=== PATIENT | female | born 1930 | race African-American/Black ===

== ENCOUNTER 2016-08-31 14:52 | Emergency (ER) | payer MEDICARE ==
[2016-08-31] MEDS ORDERED: HYDROCODONE/ACETAMINOPHEN 5-325 MG TABLET PO ONE (15:50)
--- NOTE | 2016-08-31 16:04 | ER Document Report ---
ED General - General Chief Complaint: Rib Pain Stated Complaint: FALL/ RIB PAIN, SHORTNESS OF BREATH Time Seen by Provider: 08/31/16 15:25 Mode of Arrival: Wheelchair Information source: Patient Notes: 36-year-old female presents with complaints of right rib pain after fall. Patient notes she fell 2 days ago denies any fevers or chills denies any shortness of breath or difficulty breathing, patient notes when she turns the pain worsens TRAVEL OUTSIDE OF THE [place] IN LAST 30 DAYS: No - Related Data Allergies/Adverse Reactions: No Known Allergies Allergy (Verified 04/30/13 17:48) Past Medical History - Social History Smoking Status: Never Smoker Cigarette use (# per day): No Chew tobacco use (# tins/day): No Smoking Education Provided: No Family History: Reviewed & Not Pertinent Patient has suicidal ideation: No Patient has homicidal ideation: No - Past Medical History Cardiac Medical History: Reports: Hx Hypercholesterolemia, Hx Hypertension Renal/ Medical History: Denies: Hx Peritoneal Dialysis Past Surgical History: Reports: Hx Appendectomy, Hx Hysterectomy - Immunizations Hx Diphtheria, Pertussis, Tetanus Vaccination: Yes Review of Systems - Review of Systems Notes: REVIEW OF SYSTEMS: CONSTITUTIONAL : Denies fever, chills, or sweats. Denies recent illness. EENT: Denies eye, ear, throat, or mouth pain or symptoms. Denies nasal or sinus congestion or discharge. Denies throat, tongue, or mouth swelling or difficulty swallowing. CARDIOVASCULAR: Denies chest pain. Denies palpitations or racing or irregular heart beat. Denies ankle edema. RESPIRATORY: Denies cough, cold, or chest congestion. Denies shortness of breath, difficulty breathing, or wheezing. GASTROINTESTINAL: Denies abdominal pain or distention. Denies nausea, vomiting , or diarrhea. Denies blood in vomitus, stools, or per rectum. Denies black, tarry stools. Denies constipation. GENITOURINARY: Denies difficulty urinating, painful urination, burning, frequency, blood in urine, or discharge. FEMALE GENITOURINARY: Denies vaginal bleeding, heavy or abnormal periods, irregular periods. Denies vaginal discharge or odor. MUSCULOSKELETAL: Denies back or neck pain or stiffness. Denies joint pain or swelling. Admits to rib pain right ribs 6 through 10 SKIN: Denies rash, lesions or sores. HEMATOLOGIC : Denies easy bruising or bleeding. LYMPHATIC: Denies swollen, enlarged glands. NEUROLOGICAL: Denies confusion or altered mental status. Denies passing out or loss of consciousness. Denies dizziness or lightheadedness. Denies headache. Denies weakness or paralysis or loss of use of either side. Denies problems with gait or speech. Denies sensory loss, numbness, or tingling. Denies seizures. PSYCHIATRIC: Denies anxiety or stress. Denies depression, suicidal ideation, or homicidal ideation. ALL OTHER SYSTEMS REVIEWED AND NEGATIVE. PHYSICAL EXAMINATION: GENERAL: Well-appearing, well-nourished and in no acute distress. HEAD: Atraumatic, normocephalic. EYES: Pupils equal round and reactive to light, extraocular movements intact, conjunctiva are normal. ENT: Nares patent, oropharynx clear without exudates. Moist mucous membranes. NECK: Normal range of motion, supple without lymphadenopathy LUNGS: Breath sounds clear to auscultation bilaterally and equal. No wheezes rales or rhonchi. No flail chest no contusion noted mild tenderness ribs 6 through 10 right mid axillary line HEART: Regular rate and rhythm without murmurs sternal tenderness ABDOMEN: Soft, nontender, nondistended abdomen. No guarding, no rebound. No masses appreciated. Female : deferred Musculoskeletal: Normal range of motion, no pitting or edema. No cyanosis. no C, T, L pain NEUROLOGICAL: Cranial nerves grossly intact. Normal speech, normal gait. Normal sensory, motor exams PSYCH: Normal mood, normal affect. SKIN: Warm, Dry, normal turgor, no rashes or lesions noted. Dictation was performed using [employer] voice recognition software Physical Exam - Vital signs Vitals: Temp Pulse Resp BP Pulse Ox 97.5 F 61 20 133/53 H 98 08/31/16 15:05 08/31/16 15:05 08/31/16 15:05 08/31/16 15:05 08/31/16 15:05 Course - Re-evaluation Re-evalutation: 08/31/16 16:21 Imaging noted no significant abnormality, I did explain to her my concerns about 12 cervical. Patient otherwise in no distress will be discharged home After performing a Medical Screening Examination, I estimate there is LOW risk for INTRACRANIAL HEMORRHAGE, UNSTABLE SPINE FRACTURE, CENTRAL CORD SYNDROME, CAUDA EQUINA, THORACIC AORTIC DISSECTION, PNEUMOTHORAX, PERFORATED BOWEL, RUPTURED ABDOMINAL AORTIC ANEURYSM, ACUTE TENDON RUPTURE, COMPARTMENT SYNDROME, or OPEN FRACTURE, thus I consider the discharge disposition reasonable. Also, there is no evidence or peritonitis, sepsis, or toxicity. I have reevaluated this patient multiple times and no significant life threatening changes are noted. The patient and I have discussed the diagnosis and risks, and we agree with discharging home to follow-up with their primary doctor with the understanding that symptoms and presentations can change. We also discussed returning to the Emergency Department immediately if new or worsening symptoms occur. We have discussed the symptoms which are most concerning (e.g., bloody stool, fever, changing or worsening pain, vomiting) that necessitate immediate return. - Vital Signs Vital signs: Temp Pulse Resp BP Pulse Ox 97.5 F 61 20 133/53 H 98 08/31/16 15:05 08/31/16 15:05 08/31/16 15:05 08/31/16 15:05 08/31/16 15:05 - Diagnostic Test Radiology reviewed: Image reviewed, Reports reviewed - Sternal irregularity and thoracic compression fracture explained to family Discharge - Discharge Clinical Impression: Rib contusion Qualifiers: Encounter type: initial encounter Laterality: right Qualified Code(s): S20.211A - Contusion of right front wall of thorax, initial encounter Fall Qualifiers: Encounter type: initial encounter Qualified Code(s): W19.XXXA - Unspecified fall, initial encounter Condition: Stable Disposition: HOME, SELF-CARE Instructions: Rib Contusion ([facility]) Additional Instructions: Follow up with your physician tomorrow for further care or return to the ED IMMEDIATELY if symptoms worsen or new concerns occur. If you cannot afford to follow up with your primary care physician a list of low cost clinics have been provided at the end of your discharge papers as well. Prescriptions: Hydrocodone/Acetaminophen [[place]hton 5-325 mg Tablet] 1 tab PO Q6 #20 tablet
--- NOTE | 2016-08-31 16:06 | RADIOLOGY REPORT (SQ) ---
EXAM DESCRIPTION: CT CHEST WITHOUT COMPLETED DATE/TIME: 08/31/2016 3:45 pm REASON FOR STUDY: fall rib pain COMPARISON: None. TECHNIQUE: CT scan performed of the chest without intravenous contrast. Images reviewed with lung, soft tissue and bone windows. Reconstructed coronal and sagittal MPR images reviewed. All images st ored on PACS. All CT scanners at this facility use dose modulation, iterative reconstruction, and/or weight based d osing when appropriate to reduce radiation dose to as low as reasonably achievable (ALARA). [facility]: Dose Right [facility]: CareDose [facility]: Dose Right [facility]: Teradose 4D [facility]: Duogou RADIATION DOSE: mGy. LIMITATIONS: Study is limited due to motion artifact. FINDINGS: LUNGS AND PLEURA: No masses, infiltrates, pneumothorax. No pleural effusions, calcificati ons. HILAR AND MEDIASTINAL STRUCTURES: No identified masses or abnormal nodes. No obvious aneurysm. HEART AND VASCULAR STRUCTURES: No aneurysm. No pericardial effusion. UPPER ABDOMEN: No significant findings. Limited exam. THYROID AND OTHER SOFT TISSUES: No masses. No adenopathy. BONES: There is cortical irregularity involving the body of the sternum in the sagittal projection wh ich is not definitely identified in the other projections and presumably is related to motion artifac t. The possibility of a sternal fracture cannot be completely excluded however and clinical correlat ion is recommended. There is mild compression of 1 of the mid thoracic vertebra which is age indeter minate. Degenerative changes are identified in the thoracic spine. HARDWARE: None in the chest. OTHER: No other significant findings. IMPRESSION: Limited study as noted above. No acute consolidations or pleural effusions are identifi ed. No pneumothorax is seen. Cortical irregularity involving the sternum on the sagittal images as noted above which may be related to motion artifact as noted above. Clinical correlation is recommen ded however. Other findings as noted above TECHNICAL DOCUMENTATION: JOB ID: [id number] Quality ID # [id number]: Final reports with documentation of one or more dose reduction techniques (e.g., Au tomated exposure control, adjustment of the mA and/or kV according to patient size, use of iterative reconstruction technique) 2010 [employer]- All Rights Reserved
[2016-08-31 16:40] VITALS: BP 172/69
== END 2016-08-31 16:30 | disposition home or self-care (01) ==
LOC: ER 14:52
DX: S20.211A Contusion of right front wall of thorax, initial encounter (principal); R07.81 Pleurodynia; W10.9XXA Fall (on) (from) unspecified stairs and steps, initial encounter; Y92.009 Unspecified place in unspecified non-institutional (private) residence as the place of occurrence of the external cause; I10 Essential (primary) hypertension
CPT/HCPCS: 99283; 71250; A9270

== ENCOUNTER 2016-10-14 14:48 | Emergency (ER) | payer MEDICARE ==
[2016-10-14 14:55] VITALS: BP 93/64
[2016-10-14] MEDS ORDERED: CETIRIZINE 10 MG TABLET PO ONE (16:13)
--- NOTE | 2016-10-14 16:14 | ER Document Report ---
HPI - HPI Patient complains to provider of: ear popping Onset: Other - 2 weeks Onset/Duration: Persistent Quality of pain: No pain Pain Level: Denies Context: Patient complains of clicking to bilateral ears for the past 2 weeks. Patient denies any fever or drainage from the ears. She denies any sinus congestion. Associated Symptoms: Other - Ear symptoms Exacerbated by: Denies Relieved by: Denies Similar symptoms previously: No Recently seen / treated by doctor: No - ROS ROS below otherwise negative: Yes Systems Reviewed and Negative: Yes All other systems reviewed and negative - EENT EENT: DENIES: Sore Throat, Nasal Drainage-Clear Notes: Ear symptoms - NEURO Neurology: DENIES: Headache, Weakness - CARDIOVASCULAR Cardiovascular: DENIES: Chest pain - GASTROINTESTINAL Gastrointestinal: DENIES: Nausea, Patient vomiting - REPRODUCTIVE Reproductive: DENIES: : - MUSCULOSKELETAL Musculoskeletal: DENIES: Neck Pain - DERM Skin Color: Normal Skin Problems: None Past Medical History - General Information source: Patient - Social History Smoking Status: Never Smoker Frequency of alcohol use: None Drug Abuse: None Lives with: Family Family History: Reviewed & Not Pertinent Patient has suicidal ideation: No Patient has homicidal ideation: No - Past Medical History Cardiac Medical History: Reports: Hx Hypercholesterolemia, Hx Hypertension Renal/ Medical History: Denies: Hx Peritoneal Dialysis Past Surgical History: Reports: Hx Appendectomy, Hx Hysterectomy - Immunizations Hx Diphtheria, Pertussis, Tetanus Vaccination: Yes Vertical Provider Document - CONSTITUTIONAL Agree With Documented VS: Yes Exam Limitations: No Limitations General Appearance: WD/WN, No Apparent Distress - INFECTION CONTROL TRAVEL OUTSIDE OF THE [place] IN LAST 30 DAYS: No - HEENT HEENT: Atraumatic, Normocephalic. negative: Pharyngeal Exudate, Pharyngeal Tenderness, Pharyngeal Erythema, Tympanic Membrane Red, Tympanic Membrane Bulging Notes: Mild serous effusion noted to the left ear, no pain with movement of helix, no mastoid tenderness or swelling Cerumen impaction cleared with use of curette to right ear. - NECK Neck: Normal Inspection, Supple. negative: Lymphadenopathy-Left, Lymphadenopathy-Right - RESPIRATORY Respiratory: Breath Sounds Normal, No Respiratory Distress O2 Sat by Pulse Oximetry: 98 - CARDIOVASCULAR Cardiovascular: Regular Rate, Regular Rhythm - BACK Back: Normal Inspection - MUSCULOSKELETAL/EXTREMETIES Musculoskeletal/Extremeties: MAEW - NEURO Level of Consciousness: Awake, Alert, Appropriate Motor/Sensory: No Motor Deficit - DERM Integumentary: Warm, Dry, No Rash Course - Vital Signs Vital signs: Temp Pulse Resp BP Pulse Ox 97.9 F 75 93/64 L 98 10/14/16 14:53 10/14/16 14:53 10/14/16 14:53 10/14/16 14:53 Discharge - Discharge Clinical Impression: Excessive cerumen in right ear canal Otalgia Qualifiers: Laterality: bilateral Qualified Code(s): H92.03 - Otalgia, bilateral Serous otitis media Qualifiers: Chronicity: acute Laterality: left Recurrence: not specified as recurrent Qualified Code(s): H65.02 - Acute serous otitis media, left ear Condition: Stable Disposition: HOME, SELF-CARE Instructions: Cerumen Impaction ([facility]), Serous Otitis Media ([facility]) Additional Instructions: Return immediately for any new or worsening symptoms Followup with your primary care provider, call tomorrow to make a followup appointment Follow-up with ears nose and throat doctor for any continued problems Prescriptions: Cetirizine HCl [Zyrtec 10 mg Tablet] 1 tab PO DAILY #15 tablet Referrals: [facility] [Provider Group] - Follow up as needed
== END 2016-10-14 16:30 | disposition home or self-care (01) ==
LOC: ER 14:48
DX: H61.21 Impacted cerumen, right ear (principal); H65.02 Acute serous otitis media, left ear; H92.03 Otalgia, bilateral; I10 Essential (primary) hypertension
CPT/HCPCS: 99282; A9270

== ENCOUNTER 2017-06-27 13:02 | Emergency (ER) | payer MEDICARE, MEDICAID ==
[2017-06-27] MEDS ORDERED: TETRACAINE HCL 0.5% OPH SOLN 2 ML OU ONE (13:36)
--- NOTE | 2017-06-27 14:17 | ER Document Report ---
ED Medical Screen (RME) - General Chief Complaint: Eye Pain Stated Complaint: RIGHT EYE IRRITATION, PAIN Mode of Arrival: Medic Information source: Patient TRAVEL OUTSIDE OF THE [place] IN LAST 30 DAYS: No - HPI Notes: 06/27/17 14:12 87 yr old w/ a hx of HTN, hyperlipidemia presents today via EMS for c/o of floaters in eyes, eye pain 6/10 x 2 weeks, progressively worse. denies cp, sob, n/v/d. denies any trauma to eye. Patient was supposed to see valuation manager but was unable to. I have greeted and performed a rapid initial assessment of this patient. A comprehensive ED assessment and evaluation of the patient, analysis of test results and completion of medical decision making process will be conducted by an additional ED providers. - Related Data Allergies/Adverse Reactions: No Known Allergies Allergy (Verified 06/27/17 13:10) Past Medical History - Past Medical History Cardiac Medical History: Reports: Hx Hypercholesterolemia, Hx Hypertension Renal/ Medical History: Denies: Hx Peritoneal Dialysis Past Surgical History: Reports: Hx Appendectomy, Hx Hysterectomy - Immunizations Hx Diphtheria, Pertussis, Tetanus Vaccination: Yes Physical Exam - Vital signs Vitals: Temp Pulse Resp BP Pulse Ox 98.8 F 75 16 149/74 H 94 06/27/17 13:12 06/27/17 13:12 06/27/17 13:12 06/27/17 13:12 06/27/17 13:12 - HEENT Cornea: Opacified - nurse unable to obatin visual acuity Extraocular movements intact: Yes Pupils: PERRL Nerve palsy: No Visual bianchi normal: No - Respiratory Respiratory status: No respiratory distress Chest status: Nontender Breath sounds: Normal Chest palpation: Normal - Cardiovascular Rhythm: Regular Heart sounds: Normal auscultation Normal capillary refill: Yes Course - Vital Signs Vital signs: Temp Pulse Resp BP Pulse Ox 98.9 F 79 20 140/72 H 97 06/27/17 15:34 06/27/17 15:34 06/27/17 15:34 06/27/17 15:34 06/27/17 15:34 Doctor's Discharge - Discharge Clinical Impression: Conjunctivitis, Glaucoma Disposition: HOME, SELF-CARE Instructions: Conjunctivitis, Allergic, Glaucoma ([facility]) Additional Instructions: Please keep your upcoming appointment with your valuation manager. Follow up with your physician tomorrow for further care or return to the ED IMMEDIATELY if symptoms worsen or new concerns occur. If you cannot afford to follow up with your primary care physician a list of low cost clinics have been provided at the end of your discharge papers as well. Please return if you experience worsening of pain, changes in her vision. Prescriptions: Ketotifen Fumarate [Alaway] 10 ml OP Q12H 7 Days #1 drops Polymyxin B Sulf/Trimethoprim [Polytrim Eye Drops] 10 ml OP Q6H 7 Days #2 drops
--- NOTE | 2017-06-27 15:06 | ER Document Report ---
ED General - General Chief Complaint: Eye Pain Stated Complaint: RIGHT EYE IRRITATION, PAIN Time Seen by Provider: 06/27/17 14:17 Mode of Arrival: Ambulatory Information source: Patient, Relative Notes: 87-year-old female with a history of HTN, hyperlipidemia, glaucoma presents with complaint of bilateral eye irritation, watering, itching. Patient states symptoms have been present for 3 weeks. She denies any visual changes, headache. He has been seen by her lead janitor for this and was prescribed artificial tears and Bromidine. Patient also states that she is having a recurrence of floaters. She denies any head injury. She has an upcoming appointment with her lead janitor for glaucoma removal. She has had this in the past. She does not wear contacts but does wear corrective lenses. Denies any sick contacts. She admits to nasal congestion. TRAVEL OUTSIDE OF THE [place] IN LAST 30 DAYS: No - HPI Onset: Other Onset/Duration: Gradual Quality of pain: Burning - Itching, Other Severity: Mild Associated symptoms: denies: Fever Exacerbated by: Denies Relieved by: Denies Similar symptoms previously: Yes Recently seen / treated by doctor: Yes - Related Data Allergies/Adverse Reactions: No Known Allergies Allergy (Verified 06/27/17 13:10) Past Medical History - General Information source: Patient - Social History Smoking Status: Former Smoker Frequency of alcohol use: None Drug Abuse: None Family History: Reviewed & Not Pertinent Patient has suicidal ideation: No Patient has homicidal ideation: No - Past Medical History Cardiac Medical History: Reports: Hx Hypercholesterolemia, Hx Hypertension Renal/ Medical History: Denies: Hx Peritoneal Dialysis Past Surgical History: Reports: Hx Appendectomy, Hx Hysterectomy - Immunizations Hx Diphtheria, Pertussis, Tetanus Vaccination: Yes Review of Systems - Review of Systems Notes: Patient denies visual changes, fever, chills, nausea, vomiting, headache, ear pain, sore throat, cough, chest pain, shortness of breath, abdominal pain, back pain, dysuria, hematuria, rash, SI/HI. Physical Exam - Vital signs Vitals: Temp Pulse Resp BP Pulse Ox 98.8 F 75 16 149/74 H 94 06/27/17 13:12 06/27/17 13:12 06/27/17 13:12 06/27/17 13:12 06/27/17 13:12 Interpretation: Normal, Hypertensive. No: Febrile Notes: PHYSICAL EXAMINATION: GENERAL: Well-appearing, well-nourished and in no acute distress. HEAD: Atraumatic, normocephalic. EYES: Erythematous conjunctivae bilaterally. Clouded cornea consistent with glaucoma. Right eye pressure 22. Left eye pressure 28. Patient is able to read a small sign from across the room. Visual acuity is pending. Normal slit- lamp exam. No fluorescein uptake. ENT: Nares patent, oropharynx clear without exudates. Moist mucous membranes. NECK: Normal range of motion, supple without lymphadenopathy LUNGS: Breath sounds clear to auscultation bilaterally and equal. No wheezes rales or rhonchi. HEART: Regular rate and rhythm without murmurs ABDOMEN: Soft, nontender, nondistended abdomen. No guarding, no rebound. No masses appreciated. Female : deferred Musculoskeletal: Normal range of motion, no pitting or edema. No cyanosis. NEUROLOGICAL: Cranial nerves grossly intact. Normal speech, normal gait. Normal sensory, motor exams PSYCH: Normal mood, normal affect. SKIN: Warm, Dry, normal turgor, no rashes or lesions noted. - Notes Notes: PHYSICAL EXAMINATION: GENERAL: Well-appearing, well-nourished and in no acute distress. HEAD: Atraumatic, normocephalic. EYES: Pupils equal round and reactive to light, extraocular movements intact, bilateral erythematous conjunctivae. No fluorescein uptake. Normal funduscopic exam. Normal slit-lamp exam. Patient is able to read a small sign from 10 feet away. Visual acuities documented. ENT: Nares patent, oropharynx clear without exudates. Moist mucous membranes. NECK: Normal range of motion, supple without lymphadenopathy LUNGS: Breath sounds clear to auscultation bilaterally and equal. No wheezes rales or rhonchi. HEART: Regular rate and rhythm without murmurs ABDOMEN: Soft, nontender, nondistended abdomen. No guarding, no rebound. No masses appreciated. Female : deferred Musculoskeletal: Normal range of motion, no pitting or edema. No cyanosis. NEUROLOGICAL: Cranial nerves grossly intact. Normal speech, normal gait. Normal sensory, motor exams PSYCH: Normal mood, normal affect. SKIN: Warm, Dry, normal turgor, no rashes or lesions noted. Course - Re-evaluation Re-evalutation: 06/28/17 18:58 87-year-old female with a history of glaucoma presents with complaint of bilateral eye irritation, redness, tearing that has been ongoing for 3 weeks. Patient denies any visual changes, headache. She has been seen for her lead janitor recently and is scheduled for glaucoma surgery. Patient's eyes were examined under slit lamp. Patient has no fluorescein uptake. Patient has right eye pressure of 22 and a left eye pressure of 28. Patient was seen by myself upon arrival. Vital signs were reviewed. Patient is afebrile, normotensive and not hypoxic. Patient does not appear toxic or dehydrated. They are in no acute distress. Previous medical records and nursing notes reviewed. Exam is consistent with allergic conjunctivitis. Patient has good follow-up with an upcoming appointment with her lead janitor Dr. Chapa. Patient provided the opportunity to ask questions, and express concerns. Discharge instructions discussed. Patient is agreeable with discharge home. Return indications explained and discussed with the patient who displays understanding. Patient encouraged to return to the emergency department immediately with any concerns.After performing a Medical Screening Examination, I estimate there is LOW risk for a RETAINED CORNEAL or LID FOREIGN BODY, DEEP SPACE INFECTION (e.g., ORBITAL CELLULITIS OR ABSCESS), ACUTE GLAUCOMA, PENETRATING GLOBE INJURY, RETINAL DETACHMENT, or MENINGITIS thus I consider the discharge disposition reasonable. I have reevaluated this patient multiple times and no significant life threatening changes are noted. Also, there is no evidence or peritonitis, sepsis, or toxicity. The patient and I have discussed the diagnosis and risks, and we agree with discharging home with outpatient follow-up with the understanding that symptoms and presentations can change. We also discussed returning to the Emergency Department immediately if new or worsening symptoms occur. We have discussed the symptoms which are most concerning (e.g., changing or worsening pain, vision changes, neck stiffness or fever) that necessitate immediate return. - Vital Signs Vital signs: Temp Pulse Resp BP Pulse Ox 98.9 F 79 20 140/72 H 97 06/27/17 15:34 06/27/17 15:34 06/27/17 15:34 06/27/17 15:34 06/27/17 15:34 Discharge - Discharge Clinical Impression: Conjunctivitis Qualifiers: Conjunctivitis type: unspecified Laterality: bilateral Qualified Code(s): H10.9 - Unspecified conjunctivitis Glaucoma Qualifiers: Glaucoma type: unspecified Laterality: bilateral Qualified Code(s): H40.9 - Unspecified glaucoma Disposition: HOME, SELF-CARE Instructions: Conjunctivitis, Allergic, Glaucoma ([facility]) Additional Instructions: Please keep your upcoming appointment with your lead janitor. Follow up with your physician tomorrow for further care or return to the ED IMMEDIATELY if symptoms worsen or new concerns occur. If you cannot afford to follow up with your primary care physician a list of low cost clinics have been provided at the end of your discharge papers as well. Please return if you experience worsening of pain, changes in her vision. Prescriptions: Ketotifen Fumarate [Alaway] 10 ml OP Q12H 7 Days #1 drops Polymyxin B Sulf/Trimethoprim [Polytrim Eye Drops] 10 ml OP Q6H 7 Days #2 drops
[2017-06-27 15:35] VITALS: BP 140/72
== END 2017-06-27 15:38 | disposition home or self-care (01) ==
LOC: ER 13:02
DX: H10.9 Unspecified conjunctivitis (principal); H40.9 Unspecified glaucoma; H57.11 Ocular pain, right eye; H57.8 Other specified disorders of eye and adnexa; H43.399 Other vitreous opacities, unspecified eye; E78.5 Hyperlipidemia, unspecified; I10 Essential (primary) hypertension; Z87.891 Personal history of nicotine dependence
CPT/HCPCS: 99283

== ENCOUNTER 2017-07-04 23:38 | Emergency (ER) | payer MEDICARE, MEDICAID ==
[2017-07-04 23:47] VITALS: BP 142/67
== END 2017-07-05 04:12 | disposition left against medical advice (07) ==
LOC: ER 23:38
DX: Z53.21 Procedure and treatment not carried out due to patient leaving prior to being seen by health care provider (principal); S09.90XA Unspecified injury of head, initial encounter; W19.XXXA Unspecified fall, initial encounter

== ENCOUNTER 2017-12-15 11:10 | Emergency (ER) | payer MEDICARE, MEDICAID ==
[2017-12-15 11:27] VITALS: BP 143/62
--- NOTE | 2017-12-15 11:39 | ER Document Report ---
ED General - General Chief Complaint: Hip Pain Stated Complaint: HIP AND BACK PAIN Time Seen by Provider: 12/15/17 11:30 Notes: Patient is a 87-year-old female that presents to the emergency department for chief complaint of back pain radiating to the buttocks. Patient reports she is been having pain in her right back that radiates to the right hip over the past 2 weeks is getting progressively worse. She has been taking Aleve, Motrin and gabapentin which has given her pretty good relief of the pain. She has been less ambulatory due to this pain. She reports a fall several months ago, but she did improve after that fall, she did not have any fractures recently. She denies having any numbness, tingling or weakness in any lower extremity, denies any bowel or bladder incontinence or urinary retention, denies any saddle anesthesias or paresthesias. She currently rates the pain as a 6 out of 10, describes as an aching dull sensation from the low back into the right buttock. Past Medical History: Hypertension, anxiety, depression Past Surgical History: Appendectomy Social History: Denies tobacco, alcohol or drug use, lives at home with family Family History: Reviewed and noncontributory for presenting illness Allergies: Reviewed, see documented allergy list. REVIEW OF SYSTEMS: Unless otherwise stated in this report the patient's positive and negative responses for review of systems for constitutional, eyes, ENT, cardiovascular, respiratory, gastrointestinal, neurological, genitourinary, musculoskeletal, and integumentary systems and related systems to the presenting problem are either as stated in the HPI or were not pertinent or were negative for the symptoms and/or complaints related to the presenting medical problem. PHYSICAL EXAMINATION: Vital signs reviewed, nursing noted reviewed. GENERAL: Elderly female, no acute or apparent distress HEAD: Atraumatic, normocephalic. EYES: Eyes appear normal, extraocular movements intact, sclera anicteric, conjunctiva are normal. ENT: nares patent, oropharynx clear without exudates. Moist mucous membranes. NECK: Normal range of motion, supple without lymphadenopathy LUNGS: Breath sounds clear to auscultation bilaterally and equal. No wheezes rales or rhonchi. HEART: Regular rate and rhythm without murmurs ABDOMEN: Soft, nontender, normoactive bowel sounds. No rebound, guarding, or rigidity. No masses appreciated. Back: No thoracic or lumbar midline tenderness with palpation, there is mild paraspinal tenderness to the left lumbar region, there is also tenderness to palpation of the sciatic area, near the piriformis muscle. Good range of motion , no step-offs or deformities. EXTREMITIES: Nontender, good range of motion, no pitting or edema. NEUROLOGICAL: No focal neurological deficits. Moves all extremities spontaneously Motor and sensory grossly intact on exam. Patellar and Achilles tendon reflexes intact bilaterally, +2/4 and equal PSYCH: Normal mood, normal affect. SKIN: Warm, Dry, normal turgor, no rashes or lesions noted on exposed skin TRAVEL OUTSIDE OF THE [place] IN LAST 30 DAYS: No - Related Data Allergies/Adverse Reactions: No Known Allergies Allergy (Verified 12/15/17 11:14) Past Medical History - Social History Smoking Status: Unknown if Ever Smoked Chew tobacco use (# tins/day): No Frequency of alcohol use: None Drug Abuse: None Family History: Reviewed & Not Pertinent Patient has suicidal ideation: No Patient has homicidal ideation: No - Past Medical History Cardiac Medical History: Reports: Hx Hypercholesterolemia, Hx Hypertension Renal/ Medical History: Denies: Hx Peritoneal Dialysis Musculoskeletal Medical History: Reports Hx Arthritis Past Surgical History: Reports: Hx Appendectomy, Hx Hysterectomy - Immunizations Hx Diphtheria, Pertussis, Tetanus Vaccination: Yes Physical Exam - Vital signs Vitals: Temp Pulse Resp BP Pulse Ox 98.4 F 88 14 143/62 H 96 12/15/17 11:25 12/15/17 11:25 12/15/17 11:25 12/15/17 11:25 12/15/17 11:25 Course - Re-evaluation Re-evalutation: Patient had no recent injuries, his symptoms are most consistent with sciatica, even radiation from the back into the buttock region, reproducible pain on exam. No radicular symptoms such as numbness, weakness or tingling. We will place the patient on prednisone for 5 days, advised her to avoid NSAIDs over the course of the next 5 days, but she can take the gabapentin she has been having that seem to be helping her, she can also follow-up with her primary care physician, if needed for further evaluation and management. She also may need physical therapy to help with ambulation. Patient and patient's family members were agreeable to this plan of care and she was discharged home. - Vital Signs Vital signs: Temp Pulse Resp BP Pulse Ox 98.4 F 88 14 143/62 H 96 12/15/17 11:25 12/15/17 11:25 12/15/17 11:25 12/15/17 11:25 12/15/17 11:25 Discharge - Discharge Clinical Impression: Sciatica Qualifiers: Laterality: right Qualified Code(s): M54.31 - Sciatica, right side Condition: Stable Disposition: HOME, SELF-CARE Instructions: Sciatica ([facility]) Additional Instructions: Please return to the emergency department if you have any worsening, or concern of your symptoms. Please return to the emergency department if you develop chest pain, difficulty breathing, severe abdominal pain, or ongoing vomiting. Please follow-up with your primary care physician in 2-3 days and any other recommended physicians. If prescribed, take all medications as directed. If you have any questions or concerns do not hesitate to return the emergency department for evaluation. Prescriptions: Prednisone 40 mg PO DAILY #10 tablet Referrals: EDWARD YOUNG MD [ACTIVE STAFF] - Follow up in 3-5 days (orthopedics if needed, otherwise follow-up with primary care. )
== END 2017-12-15 11:40 | disposition home or self-care (01) ==
LOC: ER 11:10
DX: M54.41 Lumbago with sciatica, right side (principal); I10 Essential (primary) hypertension
CPT/HCPCS: 99283

== ENCOUNTER 2018-03-19 11:29 | Inpatient (IN) | payer MEDICAID, MEDICARE ==
[2018-03-19] MEDS ORDERED: RABIES VACCINE (PCEC)/PF 2.5 UNIT/1 ML KIT IM ONE (12:14)
[2018-03-19] MEDS ORDERED: AMOXICILLIN TR/POT CLAVULANATE 500-125 MG TAB PO ONE (12:15)
--- NOTE | 2018-03-19 12:46 | ER Document Report ---
Entered by STEPHEN BARRON SCRIBE 03/19/18 1215 Acting as scribe for:MIL NOLASCO DO ED Medical Screen (RME) - General Chief Complaint: Cat Bite Stated Complaint: LEFT WRIST SWOLLEN Time Seen by Provider: 03/19/18 12:09 Notes: 88-year-old female who presents to the emergency department today with complaints of a cat bite which occurred 6 days ago. Patient states that this cat is a stray and she does not know whether or not the cat has rabies. Patient mentions that 3 years ago she was bit by a stray dog and had to have a full set of rabies vaccines at that time. Patient states she noticed the swelling and re dness when she woke up this morning. Patient denies any fevers. Patient has full range of motion of left wrist and fingers. I have greeted and performed a rapid initial assessment of this patient. A comprehensive ED assessment and evaluation of the patient, analysis of test results, and completion of the medical decision making process will be conducted by additional ED providers. Review of systems: Constitutional: Denies fevers. EENT: No symptoms reported Cardiovascular: No symptoms reported Respiratory: No symptoms reported Gastrointestinal: No symptoms reported Genitourinary: No symptoms reported Musculoskeletal: Left wrist pain Skin: Left wrist redness/swelling Hematologic/Lymphatic: No symptoms reported Neurological/Psychological: No symptoms reported Yes All other systems reviewed and negative PHYSICAL EXAM GENERAL: Alert, interacts well. No acute distress. HEAD: Normocephalic, atraumatic. EYES: Pupils equal, round, and reactive to light. Extraocular movements intact. ENT: Oral mucosa moist, tongue midline. NECK: Full range of motion. Supple. Trachea midline. LUNGS: No respiratory distress. EXTREMITIES: Complains of pain with dorsiflexion of left wrist. 5 out of 5 muscle strength in the left wrist and fingers. NEUROLOGICAL: Alert and oriented x3. Normal speech. PSYCH: Normal affect, normal mood. SKIN: Fluctuance over the left dorsal wrist. Erythema over the left dorsoradial apest of left wrist wrist with increased warmth. Lymphangitic streaking up the left forearm traveling from the radial aspect to the ulnar aspect dorsally. 4 puncture wounds consistent with a cat bite. Swelling over the left dorsal hand. Area of erythema measures 5cm in diameter however the lymphangitic streaking extends past this area. There is one puncture wound just distal to the fluctuance. TRAVEL OUTSIDE OF THE [place] IN LAST 30 DAYS: No - Related Data Allergies/Adverse Reactions: No Known Allergies Allergy (Verified 03/19/18 11:33) Past Medical History - Past Medical History Cardiac Medical History: Reports: Hx Hypercholesterolemia, Hx Hypertension Renal/ Medical History: Denies: Hx Peritoneal Dialysis Musculoskeltal Medical History: Reports Hx Arthritis Past Surgical History: Reports: Hx Appendectomy, Hx Hysterectomy - Immunizations Hx Diphtheria, Pertussis, Tetanus Vaccination: Yes Physical Exam - Vital signs Vitals: Temp Pulse Resp BP Pulse Ox 98.1 F 77 16 149/77 H 99 03/19/18 11:38 03/19/18 11:38 03/19/18 11:38 03/19/18 11:38 03/19/18 11:38 Course - Re-evaluation Re-evalutation: 03/19/18 12:14 Per [facility] website patient will been previously immunized should get to rabies vaccine doses 1 on day 0 and day 3. Rabies immunoglobulin is not required. Patient will be given first dose here. - Vital Signs Vital signs: Temp Pulse Resp BP Pulse Ox 98.1 F 77 16 149/77 H 99 03/19/18 11:38 03/19/18 11:38 03/19/18 11:38 03/19/18 11:38 03/19/18 11:38 I personally performed the services described in the documentation, reviewed and edited the documentation which was dictated to the scribe in my presence, and it accurately records my words and actions.
--- NOTE | 2018-03-19 13:17 | RADIOLOGY REPORT (SQ) ---
EXAM DESCRIPTION: WRIST LEFT 3 VIEWS COMPLETED DATE/TIME: 03/19/2018 1:08 pm REASON FOR STUDY: bit by cat, look for FB/tooth COMPARISON: None. NUMBER OF VIEWS: Three views. TECHNIQUE: AP, lateral, and oblique radiographic images acquired of the left wrist. LIMITATIONS: None. FINDINGS: MINERALIZATION: Normal. BONES: No fracture or dislocation. Degenerative joint changes seen in the 1st carpometacarpal joint and in the 1st metacarpophalangeal joint. SOFT TISSUES: No soft tissue swelling. No foreign body. OTHER: No other significant finding. IMPRESSION: Degenerative joint disease. No acute abnormality in the wrist. TECHNICAL DOCUMENTATION: JOB ID: [id number] [employer]- All Rights Reserved Reading location - IP/workstation name: [email or web address]
--- NOTE | 2018-03-19 13:20 | ER Document Report ---
HPI - HPI Time Seen by Provider: 03/19/18 12:09 Pain Level: 2 Notes: Patient is an 88-year-old female who presents emergency department complaining of a cat bite to her left wrist that occurred about 4 days ago. Patient states that she was feeding her cats on her porch when another cat that she did not recognize was on the porch. Patient states that she tried to scared away, but it bit her in the wrist before running off. Patient states that it looked well otherwise. Her last tetanus was less than 5 years. Denies any drug allergies. Patient states that she does have redness and swelling that is gotten worse over the course of last several days without any purulent discharge. Patient states that she is eating and drinking without difficulty. She is urinating normally. Denies drug allergies. No other concerns or complaints. Denies any headache, fever, neck pain, URI, sore throat, chest pain, palpitations, syncope, cough, shortness of breath, wheeze, dyspnea, abdominal pain, nausea/vomiting/diarrhea, urinary retention, dysuria, hematuria, loss of control of bowel or bladder, numbness/tingling, muscle paralysis/weakness. Pt has had the rabies vaccination several years ago for a dog bite. - ROS Systems Reviewed and Negative: Yes All other systems reviewed and negative - REPRODUCTIVE Reproductive: DENIES: : - DERM Skin Color: Normal Past Medical History - Social History Smoking Status: Unknown if Ever Smoked Family History: Reviewed & Not Pertinent Patient has suicidal ideation: No Patient has homicidal ideation: No - Past Medical History Cardiac Medical History: Reports: Hx Hypercholesterolemia, Hx Hypertension Renal/ Medical History: Denies: Hx Peritoneal Dialysis Musculoskeletal Medical History: Reports Hx Arthritis Past Surgical History: Reports: Hx Appendectomy, Hx Hysterectomy - Immunizations Hx Diphtheria, Pertussis, Tetanus Vaccination: Yes Vertical Provider Document - CONSTITUTIONAL Agree With Documented VS: Yes Notes: PHYSICAL EXAMINATION: GENERAL: Well-appearing, well-nourished and in no acute distress. A&Ox4. Answers questions appropriately. HEAD: Atraumatic, normocephalic. EYES: Pupils equal round and reactive to light, extraocular movements intact, sclera anicteric, conjunctiva are normal. ENT: Nares patent and without discharge. oropharynx clear without exudates. No tonsilar hypertrophy or erythema. Moist mucous membranes. NECK: Normal range of motion, supple without lymphadenopathy LUNGS: Breath sounds clear to auscultation bilaterally and equal. No wheezes rales or rhonchi. HEART: Regular rate and rhythm without murmurs, rubs, gallops. Musculoskeletal: Left hand: FROM to passive/active. Strength 5+/5. N/v intact distal. Able to flex fingers w/o difficulty. Extremities: No cyanosis, clubbing, or edema b/l. Peripheral pulses 2+. Capillary refill less than 3 seconds. NEUROLOGICAL: Cranial nerves grossly intact. Normal speech, normal gait. Normal sensory, motor exams PSYCH: Normal mood, normal affect. SKIN: Left wrist: + old puncture wounds consistent with probable bite noted. There is associated erythema, warmth, and swelling to the wrist. + tenderness. + scant fluctuance noted superficially. Minimal streaking. + swelling to the hand in association. - INFECTION CONTROL TRAVEL OUTSIDE OF THE [place] IN LAST 30 DAYS: No Course - Re-evaluation Re-evalutation: 03/19/18 13:[address] Eloy sullivan the patient as well: We will attempt needle aspiration due to the location and size of the fluctuant material. No deeper or large pocket noted on US at bedside. Labs ordered and we will consider admission. 03/19/18 15:09 Simple incision and drainage was performed cautiously do the area and small area of fluctuance with purulence expressed and wound culture obtained. Patient tied procedure well without any complications. Dressing was applied. I did call and speak with Dr. Kirk who will have Dr. Baker evaluate the patient for possible admission for IV antibiotics. They will let me know thereafter if they will accept or if they want to try outpatient. Patient does appear to be reliable if we were to discharge and we would have her follow-up within 24 hours for recheck. 03/19/18 16:07 I did speak with Dr. Baker who will accept pt for admit. - Vital Signs Vital signs: Temp Pulse Resp BP Pulse Ox 98.1 F 77 16 149/77 H 99 03/19/18 11:38 03/19/18 11:38 03/19/18 11:38 03/19/18 11:38 03/19/18 11:38 - Laboratory Result Diagrams: 03/19/18 14:16 03/19/18 14:16 Procedures - Incision and Drainage Left Wrist Time completed: 14:45 - small puncture placed due to location and size of abscess per Dr. Lyons Type: Simple Anesthetic type: Other - topical LET Blade size: 11 I&D procedure: Chlorprep applied, Iodoform packing placed, Sterile dressing applied Incision Method: Incision made by scalpel Amount/type of drainage: moderate purulent Discharge - Discharge Clinical Impression: Cellulitis of wrist Condition: Stable Disposition: ADMITTED INPATIENT Admitting Provider: Hospitalist - Dr. Baker Unit Admitted: Medical Floor
[2018-03-19] MEDS ORDERED: LIDOCAINE 4%/TETRACAINE 0.5%/EPI 0.18% 5 ML TOPICAL SOLN TOP ONE (13:28)
[2018-03-19 14:45] LABS: ABSOLUTE BASOPHILS # (AUTO) 0.1 10^3/uL (0.0-0.2); ABSOLUTE EOSINOPHILS # (AUTO) 0.1 10^3/uL (0.0-0.6); ABSOLUTE MONOCYTES (AUTO) 1.4 10^3/uL (0.1-1.4); ABSOLUTE NEUT (AUTO) 6.6 10^3/uL (1.7-8.2); BASOPHILS % (AUTO) 0.6 % (0-2); EOSINOPHILS % (AUTO) 1.6 % (0-6); HEMATOCRIT 33.3 % (36.0-47.0); HEMOGLOBIN 11.1 g/dL (12.0-15.5); MEAN CORPUSCULAR HEMOGLOBIN 30.3 pg (27.0-33.4); MEAN CORPUSCULAR HGB CONC 33.3 g/dL (32.0-36.0); MEAN CORPUSCULAR VOLUME 91 fl (80-97); PLATELET COUNT 457 10^3/uL (150-450); RED BLOOD COUNT 3.65 10^6/uL (3.72-5.28); RED CELL DISTRIBUTION WIDTH 14.3 % (11.5-14.0); SEGMENTED NEUTROPHILS % (AUTO) 71.8 % (42-78); TOTAL CELLS COUNTED % (AUTO) 100 %; WHITE BLOOD COUNT 9.2 10^3/uL (4.0-10.5)
[2018-03-19 15:01] LABS: ALANINE AMINOTRANSFERASE 20 U/L (9-52); ALBUMIN 4.3 g/dL (3.5-5.0); ALKALINE PHOSPHATASE 86 U/L (38-126); ANION GAP 11 (5-19); ASPARTATE AMINO TRANSFERASE 32 U/L (14-36); BILIRUBIN,DIRECT 0.4 mg/dL (0.0-0.4); BILIRUBIN,TOTAL 0.9 mg/dL (0.2-1.3); BLOOD UREA NITROGEN 17 mg/dL (7-20); CALCIUM 10.7 mg/dL (8.4-10.2); CARBON DIOXIDE 24 mmol/L (22-30); CHLORIDE 108 mmol/L (98-107); GLUCOSE 97 mg/dL (75-110); POTASSIUM 3.9 mmol/L (3.6-5.0); SODIUM 142.5 mmol/L (137-145); TOTAL PROTEIN 7.8 g/dL (6.3-8.2)
--- NOTE | 2018-03-19 16:30 | PDOC H&P ---
History of Present Illness Admission Date/PCP: 03/19/18 16:15 Patient complains of: Cat bite left wrist History of Present Illness: TAVO RODGERS is a 88 year old female who presented to the ED with complaint of cat bite to her left wrist 4 days ago (on Thursday, today is Thursday). Patient states it was a stray cat. The cat came to her porch and she tried to wave it away and it bit her on the wrist. The cat was not acting erratic. Patient has not used anything for the bite. She felt her hand was swelling up and changing color so she decided to come to the ED. Denies fever or chills, no chest pain or shortness of breath or palpitations. No foaming in the mouth, no headache, no stiff neck or photophobia. Evaluation in the ED significant for normal CBC, but CRP elevated at 15. Her last tetanus immunization was less than 5 years ago. Patient received Augmentin in the ED. I&D was done in the ED, fluids from the wound was sent for culture, blood cultures done and patient referred for admission. Past Medical History Cardiac Medical History: Reports: Hyperlipidema, Hypertension Musculoskeltal Medical History: Reports: Arthritis Past Surgical History Past Surgical History: Reports: Appendectomy, Hysterectomy Social History Smoking Status: Never Smoker Frequency of Alcohol Use: Social - Advance Directive Resuscitation Status: Full Code Family History Family History: Reviewed & Not Pertinent Parental Family History Reviewed: Yes Children Family History Reviewed: Yes Sibling(s) Family History Reviewed.: Yes Medication/Allergy Home Medications: Diazepam [Valium 5 mg Tablet] 5 mg PO Q8HP PRN 04/23/13 Folic Acid/Multivit-Min/Lutein [Centrum Silver Chewable Tablet] 1 each PO DAILY 04/23/13 Pravastatin Sodium [Pravachol] 20 mg PO DAILY 04/23/13 Brimonidine Tartrate [Alphagan P] 1 drop OU Q12 03/19/18 Citalopram Hydrobromide [Celexa 20 mg Tablet] 40 mg PO DAILY 03/19/18 Difluprednate [Durezol] 1 drop OU DAILY 03/19/18 Diltiazem HCl [Cardizem 90 mg Tablet] 90 mg PO Q12 03/19/18 Donepezil HCl [Aricept] 10 mg PO DAILY 03/19/18 Meloxicam [Mobic] 7.5 mg PO Q12HP PRN 03/19/18 Timolol Maleate [Timoptic 0.5% Oph Soln 5 ml] 1 drop OU Q12 03/19/18 Allergies/Adverse Reactions: No Known Allergies Allergy (Verified 03/19/18 11:33) Review of Systems Review of Systems: CONSTITUTIONAL : Fever, chills -- No; unexpalined fatigue -- No EENT: Denies eye, ear, throat, or mouth pain or symptoms. Denies nasal or sinus congestion or discharge. Denies throat, tongue, or mouth swelling or diff iculty swallowing. CARDIOVASCULAR: Denies chest pain. No racing heart RESPIRATORY: Denies cough, no shortness of breath, difficulty breathing. GASTROINTESTINAL: Denies abdominal pain or distention. Denies nausea, vomiting, or diarrhea. No rectal bleeding. GENITOURINARY: Urinary symptoms -- no. MUSCULOSKELETAL: No acute weakness SKIN: Denies rash, lesions or sores. HEMATOLOGIC : Denies easy bruising or bleeding. LYMPHATIC: Denies swollen, enlarged glands. NEUROLOGICAL: New weakness, headaches, slured speach - No PSYCHIATRIC: Changes anxiety or stress, depression, suicidal ideation, or homicidal ideation -- No ALL OTHER SYSTEMS REVIEWED AND NEGATIVE. Physical Exam Vital Signs: Temp Pulse Resp BP Pulse Ox 98.1 F 77 16 149/77 H 99 03/19/18 11:38 03/19/18 11:38 03/19/18 11:38 03/19/18 11:38 03/19/18 11:38 Intake & Output 03/18/18 03/19/18 03/20/18 06:59 06:59 06:59 Weight 59.2 kg GENERAL: Well-developed, elderly female, no acute distress HEENT: Normocephalic/atraumatic NECK supple, no JVD CARDIOVASCULAR: RRR, normal S1-S2 LUNGS: CTA bilaterally ABDOMEN: Soft, NT, NL bowel sounds EXTREMITIES: No edema except slight left wrist swelling, no clubbing, cyanosis NEUROLOGICAL: Alert, oriented x 3, strength 5/5 all extremities, CN II-XII grossly intact SKIN: Left wrist: old puncture wounds left wrist with mild surrounding erythema, tenderness, and mild swelling. Results Laboratory Results: 03/19/18 14:16 03/19/18 14:16 03/19/18 03/19/18 14:16 14:16 WBC 9.2 RBC 3.65 L Hgb 11.1 L Hct 33.3 L MCV 91 MCH 30.3 MCHC 33.3 RDW 14.3 H Plt Count 457 H Seg Neutrophils % 71.8 Lymphocytes % 11.0 L Monocytes % 15.0 H Eosinophils % 1.6 Basophils % 0.6 Absolute Neutrophils 6.6 Absolute Lymphocytes 1.0 Absolute Monocytes 1.4 Absolute Eosinophils 0.1 Absolute Basophils 0.1 Sodium 142.5 Potassium 3.9 Chloride 108 H Carbon Dioxide 24 Anion Gap 11 BUN 17 Creatinine 0.81 Est GFR ( Amer) > 60 Est GFR (Non-Af Amer) > 60 Glucose 97 Calcium 10.7 H Total Bilirubin 0.9 AST 32 ALT 20 Alkaline Phosphatase 86 Total Protein 7.8 Albumin 4.3 Impressions: Wrist X-Ray 03/19/18 12:15 IMPRESSION: Degenerative joint disease. No acute abnormality in the wrist. Assessment & Plan - Diagnosis (1) Cat bite involving extremity Is this a current diagnosis for this admission?: Yes (2) Cellulitis of wrist Is this a current diagnosis for this admission?: Yes (3) Hypertension Is this a current diagnosis for this admission?: Yes (4) Hyperlipidemia Is this a current diagnosis for this admission?: Yes (5) Degenerative joint disease Is this a current diagnosis for this admission?: Yes - Plan Summary Plan Summary: Will admit patient to 24 hours observation. Will treat with IV Unasyn. Follow blood and wound culture results. If clinical improvement, including pain and redness, I believe patient can still safely be transitioned to p.o. Augmentin at discharge and also depending on culture results. However if worsening symptoms of worsening swelling or fever, consider orthopedic consult for possible further I&D and/or debridement. Continue outpatient medications otherwise.
[2018-03-19] MEDS ORDERED: ACETAMINOPHEN 325 MG TABLET ONE (17:35)
[2018-03-19] MEDS: ENOXAPARIN SODIUM INJ 40 MG/0.4 ML DISP.SYRIN SUBCUT SCH (19:41)
[2018-03-19] MEDS ORDERED: DIAZEPAM 5 MG TABLET PO PRN (21:05)
[2018-03-19] MEDS ORDERED: MELOXICAM 7.5 MG TABLET PO PRN (21:05)
[2018-03-19] MEDS: DILTIAZEM HCL 90 MG TABLET PO SCH (21:58)
[2018-03-19] MEDS ORDERED: (PENDING PHARMACY ID) (Brimonidine Tartrate [Alphagan P] 1 DROP) OU SCH (22:00)
[2018-03-19] MEDS: TIMOLOL MALEATE 0.5% OPH SOLN 5 ML OU SCH (22:04)
[2018-03-19] MEDS: ACETAMINOPHEN 325 MG TABLET PO PRN (23:07)
[2018-03-19] MEDS: AMPICILLIN SODIUM/SULBACTAM NA 3 GM in NORMAL SALINE 100 ML IV SCH (23:10)
[2018-03-20] MEDS: AMPICILLIN SODIUM/SULBACTAM NA 3 GM in NORMAL SALINE 100 ML IV SCH ×3 (05:33→17:41)
[2018-03-20 07:07] LABS: HEMATOCRIT 30.2 % (36.0-47.0); HEMOGLOBIN 10.2 g/dL (12.0-15.5); MEAN CORPUSCULAR HEMOGLOBIN 29.9 pg (27.0-33.4); MEAN CORPUSCULAR HGB CONC 33.7 g/dL (32.0-36.0); MEAN CORPUSCULAR VOLUME 89 fl (80-97); PLATELET COUNT 411 10^3/uL (150-450); RED CELL DISTRIBUTION WIDTH 14.3 % (11.5-14.0); WHITE BLOOD COUNT 6.5 10^3/uL (4.0-10.5)
[2018-03-20 07:23] LABS: ANION GAP 5 (5-19); BLOOD UREA NITROGEN 11 mg/dL (7-20); CALCIUM 9.9 mg/dL (8.4-10.2); CARBON DIOXIDE 25 mmol/L (22-30); CHLORIDE 111 mmol/L (98-107); GLUCOSE 102 mg/dL (75-110); POTASSIUM 3.9 mmol/L (3.6-5.0); SODIUM 140.5 mmol/L (137-145)
--- NOTE | 2018-03-20 09:47 | PDOC PROGRESS REPORT ---
Subjective Progress Note for:: 03/20/18 Subjective:: Patient was seen and examined today. She is afebrile and her white count is normal. She has severe pain in her left wrist. I could squeeze a small amount of pus from the puncture site. She has significant decreased range of motion on her left wrist. Reason For Visit: CAT BITE Physical Exam Vital Signs: Temp Pulse Resp BP Pulse Ox 99.2 F 80 24 H 154/68 H 97 03/20/18 09:12 03/20/18 09:12 03/20/18 09:12 03/20/18 09:12 03/20/18 09:12 Intake & Output 03/19/18 03/20/18 03/21/18 06:59 06:59 06:59 Intake Total 550 Output Total 750 Balance -200 Weight 129 lb 13.636 oz General appearance: PRESENT: no acute distress, cooperative Head exam: PRESENT: atraumatic, normocephalic Eye exam: PRESENT: EOMI Ear exam: ABSENT: bleeding, drainage Mouth exam: ABSENT: dry mucosa Neck exam: ABSENT: meningismus, tenderness Respiratory exam: ABSENT: accessory muscle use, decreased breath sounds, rales, rhonchi Cardiovascular exam: PRESENT: RRR. ABSENT: bradycardia, systolic murmur GI/Abdominal exam: PRESENT: normal bowel sounds, soft. ABSENT: ascites, mass, tenderness Extremities exam: ABSENT: joint swelling, pedal edema Musculoskeletal exam: PRESENT: other - Left wrist with decreased range of motion, swelling and tenderness, fluctuation at the puncture site Neurological exam: PRESENT: alert, awake, oriented to person, oriented to place, oriented to time, oriented to situation Psychiatric exam: PRESENT: appropriate affect. ABSENT: agitated, anxious Results Laboratory Results: 03/20/18 06:33 03/20/18 06:33 03/19/18 03/19/18 03/20/18 14:16 14:16 06:33 WBC 9.2 6.5 RBC 3.65 L 3.40 L Hgb 11.1 L 10.2 L Hct 33.3 L 30.2 L MCV 91 89 MCH 30.3 29.9 MCHC 33.3 33.7 RDW 14.3 H 14.3 H Plt Count 457 H 411 Seg Neutrophils % 71.8 Lymphocytes % 11.0 L Monocytes % 15.0 H Eosinophils % 1.6 Basophils % 0.6 Absolute Neutrophils 6.6 Absolute Lymphocytes 1.0 Absolute Monocytes 1.4 Absolute Eosinophils 0.1 Absolute Basophils 0.1 Sodium 142.5 Potassium 3.9 Chloride 108 H Carbon Dioxide 24 Anion Gap 11 BUN 17 Creatinine 0.81 Est GFR ( Amer) > 60 Est GFR (Non-Af Amer) > 60 Glucose 97 Calcium 10.7 H Total Bilirubin 0.9 AST 32 ALT 20 Alkaline Phosphatase 86 Total Protein 7.8 Albumin 4.3 03/20/18 06:33 WBC RBC Hgb Hct MCV MCH MCHC RDW Plt Count Seg Neutrophils % Lymphocytes % Monocytes % Eosinophils % Basophils % Absolute Neutrophils Absolute Lymphocytes Absolute Monocytes Absolute Eosinophils Absolute Basophils Sodium 140.5 Potassium 3.9 Chloride 111 H Carbon Dioxide 25 Anion Gap 5 BUN 11 Creatinine 0.53 Est GFR ( Amer) > 60 Est GFR (Non-Af Amer) > 60 Glucose 102 Calcium 9.9 Total Bilirubin AST ALT Alkaline Phosphatase Total Protein Albumin Impressions: Wrist X-Ray 03/19/18 12:15 IMPRESSION: Degenerative joint disease. No acute abnormality in the wrist. Assessment & Plan - Diagnosis (1) Cellulitis of wrist Is this a current diagnosis for this admission?: Yes Plan: Continue IV Unasyn. Consult orthopedic surgery. (2) Cat bite involving extremity Is this a current diagnosis for this admission?: Yes Plan: Received fall rabies vaccine series 3 years ago. According to CDC website she should receive 2 doses of rabies vaccine. She received first dose on day 0 in the emergency room yesterday. Next dose will be on Thursday and I ordered today. (3) Hypertension Is this a current diagnosis for this admission?: Yes Plan: Continue home medication and monitor blood pressure (4) Hyperlipidemia Is this a current diagnosis for this admission?: Yes Plan: Continue statin treatment
[2018-03-20] MEDS ORDERED: (PENDING PHARMACY ID) (Folic Acid/Multivit-Min/Lutein [Centrum Silver Chewable Tablet] 1 E PO SCH (10:00)
[2018-03-20] MEDS ORDERED: (PENDING PHARMACY ID) (Donepezil Hcl [Aricept] 10 MG) PO SCH (10:00)
[2018-03-20] MEDS ORDERED: (PENDING PHARMACY ID) (Difluprednate [Durezol] 1 DROP) OU SCH (10:00)
[2018-03-20] MEDS: CITALOPRAM HYDROBROMIDE 20 MG TABLET PO SCH (10:44)
[2018-03-20] MEDS: MULTIVITAMIN TABLET PO SCH (10:45)
[2018-03-20] MEDS: ENOXAPARIN SODIUM INJ 40 MG/0.4 ML DISP.SYRIN SUBCUT SCH (10:45)
[2018-03-20] MEDS: DONEPEZIL HCL 5 MG TABLET PO SCH (10:45)
[2018-03-20] MEDS: DILTIAZEM HCL 90 MG TABLET PO SCH ×2 (10:45→21:32)
[2018-03-20] MEDS: TIMOLOL MALEATE 0.5% OPH SOLN 5 ML OU SCH ×2 (10:46→21:33)
[2018-03-20] MEDS: OXYCODONE-ACETAMINOPHEN 5-325 MG TABLET PO PRN (11:50)
[2018-03-21] MEDS: AMPICILLIN SODIUM/SULBACTAM NA 3 GM in NORMAL SALINE 100 ML IV SCH ×5 (00:56→23:47)
[2018-03-21] MEDS: OXYCODONE-ACETAMINOPHEN 5-325 MG TABLET PO PRN ×2 (02:13→09:47)
[2018-03-21 05:39] LABS: HEMATOCRIT 28.8 % (36.0-47.0); HEMOGLOBIN 9.8 g/dL (12.0-15.5); MEAN CORPUSCULAR HEMOGLOBIN 30.3 pg (27.0-33.4); MEAN CORPUSCULAR VOLUME 89 fl (80-97); PLATELET COUNT 420 10^3/uL (150-450); RED BLOOD COUNT 3.22 10^6/uL (3.72-5.28); RED CELL DISTRIBUTION WIDTH 14.3 % (11.5-14.0); WHITE BLOOD COUNT 6.4 10^3/uL (4.0-10.5)
[2018-03-21 06:25] LABS: ANION GAP 5 (5-19); BLOOD UREA NITROGEN 8 mg/dL (7-20); CALCIUM 9.8 mg/dL (8.4-10.2); CARBON DIOXIDE 28 mmol/L (22-30); CHLORIDE 108 mmol/L (98-107); GLUCOSE 102 mg/dL (75-110); POTASSIUM 3.3 mmol/L (3.6-5.0); SODIUM 141.4 mmol/L (137-145)
[2018-03-21] MEDS: MULTIVITAMIN TABLET PO SCH (09:42)
[2018-03-21] MEDS: ENOXAPARIN SODIUM INJ 40 MG/0.4 ML DISP.SYRIN SUBCUT SCH (09:42)
[2018-03-21] MEDS: TIMOLOL MALEATE 0.5% OPH SOLN 5 ML OU SCH ×2 (09:42→21:49)
[2018-03-21] MEDS: DILTIAZEM HCL 90 MG TABLET PO SCH ×2 (09:42→21:49)
[2018-03-21] MEDS: CITALOPRAM HYDROBROMIDE 20 MG TABLET PO SCH (09:42)
[2018-03-21] MEDS: DONEPEZIL HCL 5 MG TABLET PO SCH (09:43)
--- NOTE | 2018-03-21 10:02 | PDOC PROGRESS REPORT ---
Subjective Progress Note for:: 03/21/18 Subjective:: Patient was seen and examined today. She is afebrile and her white count is normal. She is still having severe pain in her left wrist with decreased range of motion. Wound cultures positive for Pasteurella. Reason For Visit: CAT BITE Physical Exam Vital Signs: Temp Pulse Resp BP Pulse Ox 98.3 F 66 16 146/59 H 91 L 03/21/18 08:10 03/21/18 08:10 03/21/18 08:10 03/21/18 08:10 03/21/18 08:10 Intake & Output 03/20/18 03/21/18 03/22/18 06:59 06:59 06:59 Intake Total 550 1578 Output Total 750 700 Balance -200 878 Weight 129 lb 13.636 oz 132 lb 7.965 oz General appearance: PRESENT: no acute distress, cooperative Head exam: PRESENT: atraumatic, normocephalic Mouth exam: PRESENT: moist, neck supple Neck exam: ABSENT: meningismus, tenderness Respiratory exam: PRESENT: clear to auscultation riccardo. ABSENT: accessory muscle use Cardiovascular exam: PRESENT: RRR GI/Abdominal exam: PRESENT: normal bowel sounds, soft. ABSENT: mass, tenderness Rectal exam: PRESENT: deferred Musculoskeletal exam: PRESENT: other - Left wrist with cellulitis and possible abscess on the dorsum side Neurological exam: PRESENT: alert, awake, oriented to person, oriented to place, oriented to time, oriented to situation Results Laboratory Results: 03/21/18 05:17 03/21/18 05:17 03/21/18 03/21/18 05:17 05:17 WBC 6.4 RBC 3.22 L Hgb 9.8 L Hct 28.8 L MCV 89 MCH 30.3 MCHC 34.0 RDW 14.3 H Plt Count 420 Sodium 141.4 Potassium 3.3 L Chloride 108 H Carbon Dioxide 28 Anion Gap 5 BUN 8 Creatinine 0.54 Est GFR ( Amer) > 60 Est GFR (Non-Af Amer) > 60 Glucose 102 Calcium 9.8 03/19/18 14:52 Wrist - Bite Gram Stain - Final Impressions: Wrist X-Ray 03/19/18 12:15 IMPRESSION: Degenerative joint disease. No acute abnormality in the wrist. Assessment & Plan - Diagnosis (1) Cellulitis of wrist Is this a current diagnosis for this admission?: Yes Plan: Continue IV Unasyn. Consult orthopedic surgery pending. Cultures positive for Pasteurella multocida. (2) Cat bite involving extremity Is this a current diagnosis for this admission?: Yes Plan: Received fall rabies vaccine series 3 years ago. According to CDC website she should receive 2 doses of rabies vaccine. She received first dose on day 0 in the emergency room yesterday. Next dose is ordered on day 3 tomorrow. (3) Hypertension Is this a current diagnosis for this admission?: Yes Plan: Continue home medication and monitor blood pressure (4) Hyperlipidemia Is this a current diagnosis for this admission?: Yes Plan: Continue statin treatment
--- NOTE | 2018-03-21 15:03 | PDOC CONSULTATION ---
Consultation Consult Date: 03/20/18 Consult reason:: Cat Bite left hand History of Present Illness Admission Date/PCP: 03/21/18 09:39 History of Present Illness: TAVO RODGERS is a 88 year old female who was admitted for antibiotics after suffering a cat bite and mild erythema and cellulitis of the left hand. Has some pain with range of motion but denies any numbness or tingling or paresthesias. Denies any fevers or chills. Admits that since being admitted with IV antibiotics she is noticed an improvement in the redness swelling and pain. Past Medical History Cardiac Medical History: Reports: Hyperlipidema, Hypertension Musculoskeltal Medical History: Reports: Arthritis Past Surgical History Past Surgical History: Reports: Appendectomy, Hysterectomy Social History Smoking Status: Never Smoker Frequency of Alcohol Use: Social - Advance Directive Resuscitation Status: Full Code Family History Family History: Reviewed & Not Pertinent Parental Family History Reviewed: No Children Family History Reviewed: No Sibling(s) Family History Reviewed.: No Medication/Allergy Home Medications: Diazepam [Valium 5 mg Tablet] 5 mg PO Q8HP PRN 04/23/13 Folic Acid/Multivit-Min/Lutein [Centrum Silver Chewable Tablet] 1 each PO DAILY 04/23/13 Pravastatin Sodium [Pravachol] 20 mg PO DAILY 04/23/13 Brimonidine Tartrate [Alphagan P] 1 drop OU Q12 03/19/18 Citalopram Hydrobromide [Celexa 20 mg Tablet] 40 mg PO DAILY 03/19/18 Difluprednate [Durezol] 1 drop OU DAILY 03/19/18 Diltiazem HCl [Cardizem 90 mg Tablet] 90 mg PO Q12 03/19/18 Donepezil HCl [Aricept] 10 mg PO DAILY 03/19/18 Meloxicam [Mobic] 7.5 mg PO Q12HP PRN 03/19/18 Timolol Maleate [Timoptic 0.5% Oph Soln 5 ml] 1 drop OU Q12 03/19/18 Allergies/Adverse Reactions: No Known Allergies Allergy (Verified 03/19/18 11:33) Review of Systems Review of Systems: Constitutional: [PRESENT: as per HPI. ABSENT: chills, fever(s), headache(s), weight gain, weight loss] Eyes: [ABSENT: visual disturbances] Ears: [ABSENT: hearing changes] Cardiovascular: [ABSENT: chest pain, dyspnea on exertion, edema, orthropnea, palpitations] Respiratory: [ABSENT: cough, hemoptysis] Gastrointestinal: [ABSENT: abdominal pain, constipation, diarrhea, hematemesis, hematochezia, nausea, vomiting] Genitourinary: [ABSENT: dysuria, hematuria] Musculoskeletal: As in HPI Integumentary: [ABSENT: rash, wounds] Neurological: [ABSENT: abnormal gait, abnormal speech, confusion, dizziness, focal weakness, syncope] Psychiatric: [ABSENT: anxiety, depression, homicidal ideation, suicidal ideation] Endocrine: [ABSENT: cold intolerance, heat intolerance, menstrual abnormalities, polydipsia, polyuria] Hematologic/Lymphatic: [ABSENT: easy bleeding, easy bruising, lymphadenopathy] Physical Exam Vital Signs: Temp Pulse Resp BP Pulse Ox 36.8 C 66 16 130/56 H 98 03/21/18 11:50 03/21/18 11:50 03/21/18 11:50 03/21/18 11:50 03/21/18 11:50 Intake & Output 03/20/18 03/21/18 03/22/18 06:59 06:59 06:59 Intake Total 550 1578 Output Total 750 700 Balance -200 878 Weight 58.9 kg 60.1 kg Back of Hands Image: 1 - Puncture wound noticeable on the radial side of her left hand has no abscess or fluctuance. Just expressed some pussy fluid. Erythema is minimal. He has full range of motion of her wrist despite the pain. Full extension and flexion of her digits as well with good sensation to light touch. No streaking or lymphangitis noted Results Laboratory Results: 03/21/18 05:17 03/21/18 05:17 03/21/18 03/21/18 03/21/18 05:17 05:17 05:17 WBC 6.4 RBC 3.22 L Hgb 9.8 L Hct 28.8 L MCV 89 MCH 30.3 MCHC 34.0 RDW 14.3 H Plt Count 420 Sodium 141.4 Potassium 3.3 L Chloride 108 H Carbon Dioxide 28 Anion Gap 5 BUN 8 Creatinine 0.54 Est GFR ( Amer) > 60 Est GFR (Non-Af Amer) > 60 Glucose 102 Calcium 9.8 C-Reactive Protein 155.1 H 03/19/18 14:52 Wrist - Bite Gram Stain - Final 03/19/18 14:52 Wrist - Bite Wound Culture - Final Pasteurella Multocida Impressions: Wrist X-Ray 03/19/18 12:15 IMPRESSION: Degenerative joint disease. No acute abnormality in the wrist. Status: Image reviewed by me Assessment & Plan - Diagnosis (1) Cat bite involving extremity Is this a current diagnosis for this admission?: Yes Plan: 88-year-old female who is responding to IV antibiotics status post admission for left Bite. There is no surgical intervention required. I believe patient will respond very nicely to the IV antibiotics she is receiving. Patient can follow- up with primary or with orthopedic as she wishes. Will sign off.
[2018-03-22] MEDS: OXYCODONE-ACETAMINOPHEN 5-325 MG TABLET PO PRN ×2 (04:06→12:29)
[2018-03-22] MEDS: AMPICILLIN SODIUM/SULBACTAM NA 3 GM in NORMAL SALINE 100 ML IV SCH ×4 (05:25→23:35)
[2018-03-22] MEDS ORDERED: RABIES VACCINE (PCEC)/PF 2.5 UNIT/1 ML KIT IM ONE (10:00)
[2018-03-22] MEDS: TIMOLOL MALEATE 0.5% OPH SOLN 5 ML OU SCH ×2 (12:30→22:11)
[2018-03-22] MEDS: MULTIVITAMIN TABLET PO SCH (12:30)
[2018-03-22] MEDS: CITALOPRAM HYDROBROMIDE 20 MG TABLET PO SCH (12:30)
[2018-03-22] MEDS: DILTIAZEM HCL 90 MG TABLET PO SCH ×2 (12:31→22:10)
[2018-03-22] MEDS: DONEPEZIL HCL 5 MG TABLET PO SCH (12:31)
[2018-03-22] MEDS: ENOXAPARIN SODIUM INJ 40 MG/0.4 ML DISP.SYRIN SUBCUT SCH (12:32)
--- NOTE | 2018-03-22 13:36 | PDOC PROGRESS REPORT ---
Subjective Progress Note for:: 03/22/18 Subjective:: Patient was seen and examined today. She is afebrile and her white count is normal. Pain in her left wrist is improving. She is to have significant swelling. She was seen by orthopedic surgery and recommend antibiotics treatment. Wound cultures positive for Pasteurella. Reason For Visit: CELLULITIS OF LEFT HAND Physical Exam Vital Signs: Temp Pulse Resp BP Pulse Ox 98.3 F 71 16 147/72 H 99 03/22/18 11:52 03/22/18 11:52 03/22/18 11:52 03/22/18 11:52 03/22/18 11:52 Intake & Output 03/21/18 03/22/18 03/23/18 06:59 06:59 06:59 Intake Total 1678 1510 Output Total 700 Balance 978 1510 Weight 132 lb 7.965 oz 138 lb 14.259 oz General appearance: PRESENT: no acute distress, cooperative Head exam: PRESENT: atraumatic, normocephalic Eye exam: PRESENT: EOMI. ABSENT: nystagmus Mouth exam: PRESENT: moist, neck supple Neck exam: ABSENT: meningismus, tenderness Respiratory exam: PRESENT: clear to auscultation riccardo. ABSENT: accessory muscle use Cardiovascular exam: PRESENT: RRR. ABSENT: systolic murmur Pulses: PRESENT: normal radial pulses GI/Abdominal exam: PRESENT: normal bowel sounds, soft Rectal exam: PRESENT: deferred Extremities exam: PRESENT: joint swelling - Left wrist. ABSENT: pedal edema Musculoskeletal exam: PRESENT: ambulatory Neurological exam: PRESENT: alert, awake, oriented to person, oriented to place, oriented to time, oriented to situation Results Laboratory Results: 03/21/18 05:17 03/21/18 05:17 03/19/18 14:52 Wrist - Bite Gram Stain - Final 03/19/18 14:52 Wrist - Bite Wound Culture - Final Pasteurella Multocida Impressions: Wrist X-Ray 03/19/18 12:15 IMPRESSION: Degenerative joint disease. No acute abnormality in the wrist. Assessment & Plan - Diagnosis (1) Cellulitis of wrist Is this a current diagnosis for this admission?: Yes Plan: Continue IV Unasyn. Orthopedic surgery recommends antibiotics. Cultures positive for Pasteurella multocida. Possible discharge in 1-2 days on oral antibiotic. (2) Cat bite involving extremity Is this a current diagnosis for this admission?: Yes Plan: Received fall rabies vaccine series 3 years ago. According to CDC website she should receive 2 doses of rabies vaccine. She received first dose on day 0 in the emergency room and a second dose on day 3 today. (3) Hypertension Is this a current diagnosis for this admission?: Yes Plan: Continue home medication and monitor blood pressure (4) Hyperlipidemia Is this a current diagnosis for this admission?: Yes Plan: Continue statin treatment
[2018-03-23] MEDS: OXYCODONE-ACETAMINOPHEN 5-325 MG TABLET PO PRN ×2 (04:20→19:06)
[2018-03-23] MEDS: AMPICILLIN SODIUM/SULBACTAM NA 3 GM in NORMAL SALINE 100 ML IV SCH ×3 (05:31→18:26)
[2018-03-23 06:46] LABS: HEMATOCRIT 27.5 % (36.0-47.0); HEMOGLOBIN 9.3 g/dL (12.0-15.5); MEAN CORPUSCULAR HEMOGLOBIN 29.9 pg (27.0-33.4); MEAN CORPUSCULAR HGB CONC 33.8 g/dL (32.0-36.0); MEAN CORPUSCULAR VOLUME 88 fl (80-97); PLATELET COUNT 476 10^3/uL (150-450); RED BLOOD COUNT 3.11 10^6/uL (3.72-5.28); RED CELL DISTRIBUTION WIDTH 14.4 % (11.5-14.0); WHITE BLOOD COUNT 6.3 10^3/uL (4.0-10.5)
[2018-03-23 07:03] LABS: ANION GAP 6 (5-19); BLOOD UREA NITROGEN 10 mg/dL (7-20); CALCIUM 9.8 mg/dL (8.4-10.2); CARBON DIOXIDE 30 mmol/L (22-30); CHLORIDE 104 mmol/L (98-107); GLUCOSE 90 mg/dL (75-110); POTASSIUM 3.9 mmol/L (3.6-5.0); SODIUM 139.5 mmol/L (137-145)
--- NOTE | 2018-03-23 10:17 | PDOC PROGRESS REPORT ---
Subjective Progress Note for:: 03/23/18 Subjective:: Patient was seen and examined today. Wound cultures positive for Pasteurella. She has been on Unasyn. Orthopedic surgery do not recommend surgical intervention. She is improving and feeling better. Reason For Visit: CELLULITIS OF LEFT HAND Physical Exam Vital Signs: Temp Pulse Resp BP Pulse Ox 98.4 F 57 L 15 149/69 H 98 03/23/18 08:30 03/23/18 08:30 03/23/18 08:30 03/23/18 08:30 03/23/18 08:30 Intake & Output 03/22/18 03/23/18 03/24/18 06:59 06:59 06:59 Intake Total 1510 996 Balance 1510 996 Weight 138 lb 14.259 oz 138 lb 10.732 oz General appearance: PRESENT: no acute distress, cooperative Head exam: PRESENT: atraumatic, normocephalic Eye exam: ABSENT: conjunctival injection Mouth exam: PRESENT: moist, neck supple Neck exam: ABSENT: meningismus, tenderness Respiratory exam: PRESENT: clear to auscultation riccardo. ABSENT: accessory muscle use Cardiovascular exam: PRESENT: RRR Pulses: PRESENT: normal radial pulses GI/Abdominal exam: PRESENT: normal bowel sounds, soft. ABSENT: tenderness Rectal exam: PRESENT: deferred Extremities exam: PRESENT: other - Left wrist is erythematous and tender with decreased range of motion but much better than prior. Neurological exam: PRESENT: alert, awake, oriented to person, oriented to place, oriented to time, oriented to situation Results Laboratory Results: 03/23/18 06:12 03/23/18 06:12 03/23/18 03/23/18 06:12 06:12 WBC 6.3 RBC 3.11 L Hgb 9.3 L Hct 27.5 L MCV 88 MCH 29.9 MCHC 33.8 RDW 14.4 H Plt Count 476 H Sodium 139.5 Potassium 3.9 Chloride 104 Carbon Dioxide 30 Anion Gap 6 BUN 10 Creatinine 0.47 L Est GFR ( Amer) > 60 Est GFR (Non-Af Amer) > 60 Glucose 90 Calcium 9.8 Impressions: Wrist X-Ray 03/19/18 12:15 IMPRESSION: Degenerative joint disease. No acute abnormality in the wrist. Assessment & Plan - Diagnosis (1) Cellulitis of wrist Is this a current diagnosis for this admission?: Yes Plan: Continue IV Unasyn. Orthopedic surgery recommends antibiotics. Cultures positive for Pasteurella multocida. Possible discharge tomorrow on oral antibiotic. (2) Cat bite involving extremity Is this a current diagnosis for this admission?: Yes Plan: Received fall rabies vaccine series 3 years ago. According to CDC website she should receive 2 doses of rabies vaccine. She received first dose on day 0 in the emergency room and a second dose on day 3. (3) Hypertension Is this a current diagnosis for this admission?: Yes Plan: Continue home medication and monitor blood pressure (4) Hyperlipidemia Is this a current diagnosis for this admission?: Yes Plan: Continue statin treatment
[2018-03-23] MEDS: TIMOLOL MALEATE 0.5% OPH SOLN 5 ML OU SCH ×2 (11:24→21:14)
[2018-03-23] MEDS: ACETAMINOPHEN 325 MG TABLET PO PRN (11:25)
[2018-03-23] MEDS: DILTIAZEM HCL 90 MG TABLET PO SCH ×2 (11:28→21:15)
[2018-03-23] MEDS: MULTIVITAMIN TABLET PO SCH (11:28)
[2018-03-23] MEDS: CITALOPRAM HYDROBROMIDE 20 MG TABLET PO SCH (11:28)
[2018-03-23] MEDS: DONEPEZIL HCL 5 MG TABLET PO SCH (11:29)
[2018-03-23] MEDS: ENOXAPARIN SODIUM INJ 40 MG/0.4 ML DISP.SYRIN SUBCUT SCH (11:29)
[2018-03-24] MEDS: AMPICILLIN SODIUM/SULBACTAM NA 3 GM in NORMAL SALINE 100 ML IV SCH ×3 (00:05→12:10)
[2018-03-24] MEDS: ACETAMINOPHEN 325 MG TABLET PO PRN (06:44)
[2018-03-24] MEDS: MULTIVITAMIN TABLET PO SCH (09:06)
[2018-03-24] MEDS: DONEPEZIL HCL 5 MG TABLET PO SCH (09:06)
[2018-03-24] MEDS: CITALOPRAM HYDROBROMIDE 20 MG TABLET PO SCH (09:06)
[2018-03-24] MEDS: DILTIAZEM HCL 90 MG TABLET PO SCH (09:07)
[2018-03-24] MEDS: TIMOLOL MALEATE 0.5% OPH SOLN 5 ML OU SCH (09:07)
[2018-03-24] MEDS: ENOXAPARIN SODIUM INJ 40 MG/0.4 ML DISP.SYRIN SUBCUT SCH (09:08)
[2018-03-24 15:03] VITALS: BP 156/69
--- NOTE | 2018-03-27 17:14 | PDOC DISCHARGE SUMMARY ---
General - Admit/Disc Date/PCP Admission Date/Primary Care Provider: 03/21/18 09:39 Discharge Date: 03/24/18 - Discharge Diagnosis (1) Cat bite involving extremity Is this a current diagnosis for this admission?: Yes (2) Cellulitis of wrist Is this a current diagnosis for this admission?: Yes (3) Hyperlipidemia Is this a current diagnosis for this admission?: Yes (4) Hypertension Is this a current diagnosis for this admission?: Yes - Additional Information Resuscitation Status: Full Code Discharge Diet: Cardiac Discharge Activity: Activity As Tolerated, Balance Activity w/Rest, Slowly In crease Activity Prescriptions: Amoxicillin/Potassium Clav [Augmentin 500-125 Tablet] 1 each PO Q8H PRN #21 tablet PRN Reason: Oxycodone HCl/Acetaminophen [Percocet 5-325 mg Tablet] 1 tab PO Q6HP PRN #12 tablet PRN Reason: Home Medications: Diazepam [Valium 5 mg Tablet] 5 mg PO Q8HP PRN 04/23/13 Folic Acid/Multivit-Min/Lutein [Centrum Silver Chewable Tablet] 1 each PO DAILY 04/23/13 Pravastatin Sodium [Pravachol] 20 mg PO DAILY 04/23/13 Brimonidine Tartrate [Alphagan P] 1 drop OU Q12 03/19/18 Citalopram Hydrobromide [Celexa 20 mg Tablet] 40 mg PO DAILY 03/19/18 Difluprednate [Durezol] 1 drop OU DAILY 03/19/18 Diltiazem HCl [Cardizem 90 mg Tablet] 90 mg PO Q12 03/19/18 Donepezil HCl [Aricept] 10 mg PO DAILY 03/19/18 Meloxicam [Mobic] 7.5 mg PO Q12HP PRN 03/19/18 Timolol Maleate [Timoptic 0.5% Oph Soln 5 ml] 1 drop OU Q12 03/19/18 Acetaminophen [Tylenol 325 mg Tablet] 650 mg PO Q6HP PRN tablet 03/24/18 Amoxicillin/Potassium Clav [Augmentin 500-125 Tablet] 1 each PO Q8H PRN #21 tablet 03/24/18 Oxycodone HCl/Acetaminophen [Percocet 5-325 mg Tablet] 1 tab PO Q6HP PRN #12 tablet 03/24/18 History of Present Illness History of Present Illness: Per H&P by Dr. Baker: TAVO RODGERS is a 88 year old female who presented to the ED with complaint of cat bite to her left wrist 4 days ago (on Thursday, today is Thursday). Patient states it was a stray cat. The cat came to her porch and she tried to wave it away and it bit her on the wrist. The cat was not acting erratic. Patient has not used anything for the bite. She felt her hand was swelling up and changing color so she decided to come to the ED. Denies fever or chills, no chest pain or shortness of breath or palpitations. No foaming in the mouth, no headache, no stiff neck or photophobia. Evaluation in the ED significant for normal CBC, but CRP elevated at 15. Her last tetanus immunization was less than 5 years ago. Patient received Augmentin in the ED. I&D was done in the ED, fluids from the wound was sent for culture, blood cultures done and patient referred for admission. Hospital Course Hospital Course: The patient was admitted with cellulitis to her left wrist secondary to a cat bite. The patient received a full rabies vaccine series 3 years ago; CDC website recommended an additional 2 doses of the rabies vaccine. She received first dose on day 0 in the emergency department and second dose on day 3; she has completed rabies prophylaxis. Blood cultures were negative at 5 days; wound culture grew Pasteurella multocida. Patient was admitted to the medical floor and placed on IV Unasyn. Orthopedic surgery was consulted; recommended continue antibiotic therapy but found no need for surgical intervention. The patient's erythema, edema, tenderness, and range of motion improved significantly. She remained afebrile with a normal WBC. As the patient continued to clinically improve and had reached the maximum benefit of an inpatient stay; she has been transitioned to p.o. Augmentin and discharged to home with home health nursing and Occupational Therapy. She is advised to follow-up with her primary care provider within 1 week. She may follow-up with orthopedics, Dr. Pooja Ndiaye, as needed. She is advised of the importance of completing her full course of antibiotic therapy. She is instructed to return to the emergency department as needed for any concerning symptoms. Physical Exam Vital Signs: Temp Pulse Resp BP Pulse Ox 99.2 F 59 L 20 156/69 H 97 03/24/18 14:59 03/24/18 14:59 03/24/18 14:59 03/24/18 14:59 03/24/18 14:59 General appearance: PRESENT: no acute distress, cooperative, well-developed, well-nourished - Overweight Head exam: PRESENT: atraumatic, normocephalic Eye exam: PRESENT: conjunctiva pink, EOMI, PERRLA. ABSENT: scleral icterus Ear exam: PRESENT: normal external ear exam Mouth exam: PRESENT: moist, tongue midline Neck exam: ABSENT: carotid bruit, JVD, lymphadenopathy, thyromegaly Respiratory exam: PRESENT: clear to auscultation riccardo, symmetrical, unlabored. ABSENT: rales, rhonchi, wheezes Cardiovascular exam: PRESENT: RRR. ABSENT: diastolic murmur, rubs, systolic murmur Pulses: PRESENT: normal dorsalis pedis pul Vascular exam: PRESENT: normal capillary refill GI/Abdominal exam: PRESENT: normal bowel sounds, soft. ABSENT: distended, guarding, mass, organolmegaly, rebound, tenderness Rectal exam: PRESENT: deferred Extremities exam: PRESENT: tenderness - Left wrist; erythema with decreased range of motion. ABSENT: calf tenderness, clubbing, pedal edema Neurological exam: PRESENT: alert, awake, oriented to person, oriented to place, oriented to time, oriented to situation, CN II-XII grossly intact. ABSENT: motor sensory deficit Psychiatric exam: PRESENT: appropriate affect, normal mood. ABSENT: homicidal ideation, suicidal ideation Skin exam: PRESENT: dry, intact, warm. ABSENT: cyanosis, rash Results Laboratory Results: 03/23/18 06:12 03/23/18 06:12 Impressions: Wrist X-Ray 03/19/18 12:15 IMPRESSION: Degenerative joint disease. No acute abnormality in the wrist. Qualifiers - * PATIENT BEING DISCHARGED WITH ANY OF THE FOLLOWING DIAGNOSIS: No Plan Discharge Plan: Discharge to home with home health nursing and Occupational Therapy. Follow-up with primary care provider within 1 week. Complete antibiotic therapy. Return to the emergency department for any concerning symptoms. Time Spent: Less than 30 Minutes
== END 2018-03-24 17:05 | disposition home health service (06) | DRG 603 ==
LOC: ER 11:29 → EH 16:15 → INTOOBSV 16:15 → 4S 20:15 → OBSVTOIN 03-21 09:39 → 4N 03-24 05:23
PROVIDERS: ADMIT Internal Medicine; ATTEND Internal Medicine
PROC: 3E0234Z Introduction of Serum, Toxoid and Vaccine into Muscle, Percutaneous Approach (ICD-10-PCS; 2018-03-19)
PROC: 0H9EXZZ Drainage of Left Lower Arm Skin, External Approach (ICD-10-PCS; principal; 2018-03-21)
PROC: 3E0234Z Introduction of Serum, Toxoid and Vaccine into Muscle, Percutaneous Approach (ICD-10-PCS; 2018-03-22)
DX: L03.114 Cellulitis of left upper limb (principal); A28.0 Pasteurellosis; S61.552A Open bite of left wrist, initial encounter; W55.01XA Bitten by cat, initial encounter; Y93.K9 Activity, other involving animal care; Y92.008 Other place in unspecified non-institutional (private) residence as the place of occurrence of the external cause; I10 Essential (primary) hypertension; M19.90 Unspecified osteoarthritis, unspecified site; E78.5 Hyperlipidemia, unspecified; Z90.49 Acquired absence of other specified parts of digestive tract; Z90.710 Acquired absence of both cervix and uterus; Z23 Encounter for immunization
CPT/HCPCS: 36415; 80048; 80053; 85025; 85027; 86140; 86141; 87040; 87070; 87077; 87205; 90471; 90675; 90686; 96372; 99284; A6266; G0008; G0378; J0295; J1650; J3490

== ENCOUNTER 2018-08-17 14:42 | Emergency (ER) | payer MEDICARE, MEDICAID ==
--- NOTE | 2018-08-17 15:45 | RADIOLOGY REPORT (SQ) ---
EXAM DESCRIPTION: CHEST 2 VIEWS COMPLETED DATE/TIME: 08/17/2018 3:35 pm REASON FOR STUDY: near syncope COMPARISON: 08/31/2016 TECHNIQUE: Frontal and lateral radiographic views of the chest acquired. NUMBER OF VIEWS: Two view. LIMITATIONS: None. FINDINGS: LUNGS AND PLEURA: No pneumothorax. No consolidation or pleural effusion. MEDIASTINUM AND HILAR STRUCTURES: Stable. HEART AND VASCULAR STRUCTURES: Stable. BONES: No acute findings. HARDWARE: None in the chest. OTHER: No other significant finding. IMPRESSION: NO ACUTE FINDINGS. TECHNICAL DOCUMENTATION: JOB ID: [id number] [id number] 2010 [employer]- All Rights Reserved Reading location - IP/workstation name: [employer]
[2018-08-17 16:27] LABS: ABSOLUTE EOSINOPHILS # (AUTO) 0.2 10^3/uL (0.0-0.6); ABSOLUTE LYMPHOCYTES (AUTO) 1.6 10^3/uL (0.5-4.7); ABSOLUTE MONOCYTES (AUTO) 0.5 10^3/uL (0.1-1.4); ABSOLUTE NEUT (AUTO) 3.3 10^3/uL (1.7-8.2); BASOPHILS % (AUTO) 0.8 % (0-2); EOSINOPHILS % (AUTO) 2.9 % (0-6); HEMATOCRIT 33.6 % (36.0-47.0); HEMOGLOBIN 11.2 g/dL (12.0-15.5); LYMPHOCYTES % (AUTO) 27.9 % (13-45); MEAN CORPUSCULAR HEMOGLOBIN 29.8 pg (27.0-33.4); MEAN CORPUSCULAR HGB CONC 33.4 g/dL (32.0-36.0); MEAN CORPUSCULAR VOLUME 89 fl (80-97); MONOCYTES % (AUTO) 9.5 % (3-13); PLATELET COUNT 318 10^3/uL (150-450); RED BLOOD COUNT 3.76 10^6/uL (3.72-5.28); RED CELL DISTRIBUTION WIDTH 14.4 % (11.5-14.0); SEGMENTED NEUTROPHILS % (AUTO) 58.9 % (42-78); TOTAL CELLS COUNTED % (AUTO) 100 %; WHITE BLOOD COUNT 5.6 10^3/uL (4.0-10.5)
[2018-08-17 16:51] LABS: ALANINE AMINOTRANSFERASE 18 U/L (9-52); ALBUMIN 4.2 g/dL (3.5-5.0); ALKALINE PHOSPHATASE 67 U/L (38-126); ANION GAP 8 (5-19); ASPARTATE AMINO TRANSFERASE 22 U/L (14-36); BILIRUBIN,DIRECT 0.3 mg/dL (0.0-0.4); BILIRUBIN,TOTAL 0.9 mg/dL (0.2-1.3); BLOOD UREA NITROGEN 17 mg/dL (7-20); CALCIUM 11.3 mg/dL (8.4-10.2); CARBON DIOXIDE 26 mmol/L (22-30); CHLORIDE 106 mmol/L (98-107); GLUCOSE 98 mg/dL (75-110); SODIUM 139.9 mmol/L (137-145); TOTAL PROTEIN 7.3 g/dL (6.3-8.2)
[2018-08-17 17:56] LABS: APPEARANCE,URINE SLIGHTLY-CLOUDY; BILIRUBIN,URINE NEGATIVE (NEGATIVE); COLOR,URINE YELLOW; GLUCOSE, URINE NEGATIVE (NEGATIVE); KETONES,URINE NEGATIVE (NEGATIVE); LEUKOCYTE ESTERASE,URINE LARGE (NEGATIVE); NITRITE,URINE NEGATIVE (NEGATIVE); PROTEIN,URINE NEGATIVE (NEGATIVE); URINE SPECIFIC GRAVITY 1.017; UROBILINOGEN,URINE NEGATIVE mg/dL (<2.0)
--- NOTE | 2018-08-17 18:24 | ER Document Report ---
HPI - HPI Time Seen by Provider: 08/17/18 15:07 Pain Level: 0 Notes: Healthy 88 year old female presents form home with complaints of episode where she felt "faint". She did not pass out or fall. She denies any recen illness and states that she feels fine now. She has a history of HLD and afib which she states is controlled. She denies any N/V/D, fever or dysuria. - ROS Systems Reviewed and Negative: Yes All other systems reviewed and negative - NEURO Notes: [place] faint for a few minutes - REPRODUCTIVE Reproductive: DENIES: : - DERM Skin Color: Normal Past Medical History - General Information source: Patient - Social History Smoking Status: Former Smoker Chew tobacco use (# tins/day): No Frequency of alcohol use: Social Drug Abuse: None Family History: Reviewed & Not Pertinent Patient has suicidal ideation: No Patient has homicidal ideation: No - Past Medical History Cardiac Medical History: Reports: Hx Atrial Fibrillation, Hx Hypercholesterolemia, Hx Hypertension Renal/ Medical History: Denies: Hx Peritoneal Dialysis Musculoskeletal Medical History: Reports Hx Arthritis Past Surgical History: Reports: Hx Appendectomy, Hx Hysterectomy - Immunizations Hx Diphtheria, Pertussis, Tetanus Vaccination: Yes Vertical Provider Document - CONSTITUTIONAL Notes: PHYSICAL EXAMINATION: GENERAL: Well-appearing, apperas younger than stated age, well-nourished and in no acute distress. HEAD: Atraumatic, normocephalic. EYES: Pupils equal round and reactive to light, extraocular movements intact, sclera anicteric, conjunctiva are normal. ENT: Nares patent, oropharynx clear without exudates. Moist mucous membranes. NECK: Normal range of motion, supple without lymphadenopathy LUNGS: Breath sounds clear to auscultation bilaterally and equal. No wheezes rales or rhonchi. HEART: Regular rate and rhythm without murmurs ABDOMEN: Soft, nontender, nondistended abdomen. No guarding, no rebound. No masses appreciated. No CVA tenderness. Musculoskeletal: Normal range of motion, no pitting or edema. No cyanosis. NEUROLOGICAL: Cranial nerves grossly intact. Normal speech, normal gait. Normal sensory, motor exams PSYCH: Normal mood, normal affect. SKIN: Warm, Dry, normal turgor, no rashes or lesions noted. - INFECTION CONTROL TRAVEL OUTSIDE OF THE [place] IN LAST 30 DAYS: No Course - Re-evaluation Re-evalutation: Patient appears well, younger than stated age, vital signs within normal limits. Labs as recorded are unremarkable. Urinalysis shows large lekocyte esterase consistent with UTI. Will send for culture and start patient on ABX therapy. EKG shows a SR, rate of 60, QTc 432, normal axis, with no ST segment deviations to suggest ischemia. Cest xray is unremarkable. ED return precautions discussed and patient verbalizes understanding of same. - Vital Signs Vital signs: Temp Pulse Resp BP Pulse Ox 97.6 F 92 17 143/71 H 99 08/17/18 16:38 08/17/18 16:38 08/17/18 17:01 08/17/18 17:01 08/17/18 17:01 - Laboratory Result Diagrams: 08/17/18 16:10 08/17/18 16:10 Laboratory results interpreted by me: 08/17/18 08/17/18 08/17/18 16:10 16:10 17:30 Hgb 11.2 L Hct 33.6 L RDW 14.4 H Calcium 11.3 H Ur Leukocyte Esterase LARGE H Urine Ascorbic Acid 40 H Discharge - Discharge Clinical Impression: Urinary tract infection Qualifiers: Urinary tract infection type: site unspecified Hematuria presence: without hematuria Qualified Code(s): N39.0 - Urinary tract infection, site not specified Condition: Stable Disposition: HOME, SELF-CARE Additional Instructions: Your urine shows findings consistent with a urinary tract infection. Please take all the antibiotics as directed even if your symptoms have improved. Please follow-up with your primary care physician as needed. Return to emergency room if you develop fever >101F, persistent vomiting, become lethargic, have severe pain in your sides, or any other symptoms that are concerning to you. Prescriptions: Cephalexin [Cephalexin 500 MG Tablet] 1 tab PO BID #14 tablet Referrals: SAMUEL BERUMEN PA-C [[facility]ED STAFF] - Follow up as needed
[2018-08-17 18:26] VITALS: BP 134/60
--- NOTE | 2018-08-17 20:33 | EKG REPORT ---
SEVERITY:- OTHERWISE NORMAL ECG - SINUS RHYTHM LEFT AXIS DEVIATION : Confirmed by: Branden Adaem 17-Aug-2018 20:32:14
== END 2018-08-17 18:30 | disposition home or self-care (01) ==
LOC: ER 14:42
DX: N39.0 Urinary tract infection, site not specified (principal); I10 Essential (primary) hypertension; Z87.891 Personal history of nicotine dependence
CPT/HCPCS: 36415; 71046; 80053; 81001; 84484; 85025; 87086; 87088; 93005; 93010; 99285